=== PATIENT | female | born 1965 | race American Indian/Alaskan Native ===

== ENCOUNTER 2018-09-28 13:55 | Inpatient (IN) | payer BC ==
--- NOTE | 2018-09-28 15:14 | ED PDOC ---
Arrival/HPI - General Chief Complaint: GI Problem Time Seen by Provider: 09/28/18 14:02 Historian: Patient, Family - History of Present Illness Narrative History of Present Illness (Text): 09/28/18 15:13 52 year old female, whose past medical history includes Stage 4 neuroendocrine carcinoma (on chemotherapy pills and injection once a month), presents to the emergency department accompanied by family complaining of abdominal distention and bilateral leg swelling that began this morning. Family states they called their sister who is an Oncologist who recommended patient to come in for evaluation. Patient is currently taking Percocet for pain management and reports she took her chemotherapy pill today. Patient is also complaining of nausea, vomiting, diarrhea, and chills, but denies any fever, chills, chest pain, shortness of breath, back pain, neck pain, headache, dizziness, or any other complaints. PMD: Dr. Nascimento Oncologist: Dr. Jose Mccarty Time/Duration: Other (this morning ) Symptom Onset: Gradual Symptom Course: Unchanged Activities at Onset: Light Context: Home Past Medical History - Provider Review Nursing Documentation Reviewed: Yes - Travel History Have you recently traveled outside [place] w/in the past 3 mons?: No - Infectious Disease Hx of Infectious Diseases: None - Reproductive Menopause: Yes Currently : No - Cardiac Hx Cardiac Disorders: No - Endocrine/Metabolic Hx Diabetes Mellitus Type 2: Yes Other/Comment: endocrine ca - Hematological/Oncological Hx Blood Disorders: No - Psychiatric Hx Substance Use: No - Anesthesia Hx Anesthesia: No Hx Anesthesia Reactions: No Family/Social History - Physician Review Nursing Documentation Reviewed: Yes Family/Social History: No Known Family HX Smoking Status: Unknown If Ever Smoked Hx Alcohol Use: No Hx Substance Use: No Allergies/Home Meds Allergies/Adverse Reactions: Allergies No Known Allergies Allergy (Verified 09/28/18 14:06) Home Medications: Home Meds Medication Instructions Recorded Confirmed Everolimus [Afinitor] 0 09/28/18 Review of Systems - Physician Review All systems were reviewed & negative as marked: Yes - Review of Systems Constitutional: Other (chills). absent: Fevers Respiratory: absent: SOB Cardiovascular: absent: Chest Pain Gastrointestinal: Diarrhea, Nausea, Vomiting, Other (distented) Genitourinary Female: absent: Frequency, Hematuria Musculoskeletal: absent: Back Pain, Neck Pain Neurological: absent: Headache, Dizziness Physical Exam Vital Signs Reviewed: Yes Vital Signs Temp Pulse Resp BP Pulse Ox 09/28/18 13:56 98.1 F 99 H 16 129/80 98 Temperature: Afebrile Blood Pressure: Normal Pulse: Tachycardic Respiratory Rate: Normal Appearance: Positive for: Non-Toxic, Comfortable, Cachectic Pain Distress: None Mental Status: Positive for: Alert and Oriented X 3 - Systems Exam Conjunctiva: Present: Other (Jaundice) Respiratory/Chest: Present: Clear to Auscultation. No: Wheezes, Rales, Rhonchi Cardiovascular: Present: Regular Rate and Rhythm, Normal S1, S2. No: Murmurs, Rub, Gallop Abdomen: Present: Distention, Other (soft, fluid shift). No: Tenderness Upper Extremity: Present: Normal Inspection. No: Cyanosis, Edema Lower Extremity: Present: Edema (+2 pitting edema) Neurological: Present: GCS=15, Speech Normal Psychiatric: Present: Alert, Oriented x 3, Normal Insight, Normal Concentration Medical Decision Making ED Course and Treatment: 09/28/18 15:13 Impression: 52 year old female presents complaining of abdominal distention and bilateral leg swelling that began this morning associated with nausea, vomiting, and diarrhea. PMHx includes Stage 4 neuroendocrine carcinoma on chemotherapy. Differential Diagnosis included but are not limited to: Plan: -- VBG -- CT Abd & Pelvis IV Contrast -- Labs -- Morphine --Pepcid --IV Fluids --Zofran --Dilaudid PO --Reglan -- Blood Culture -- UA -- Reassess and disposition Progress Notes: 09/28/18 18:27 Labs reviewed with slight hyperkalemia noted. Patient feels unchanged after receiving morphine. CT findings explained to patient and family members. Dopplers negative for DVT. Spoke to patient's family who agree with plan for admission and requests pain/palliative consult. 09/28/18 18:[address] Gant(covering for Dr. Nascimento) who accepts patient onto her service. - Lab Interpretations Lab Results: 09/28/18 15:20 09/28/18 15:20 Lab Results 09/28/18 17:59: Urine Color Light yellow, Urine Appearance Clear, Urine pH 7.0, Ur Specific [place] <= 1.005, Urine Protein Negative, Urine Glucose (UA) Negative, Urine Ketones Trace H, Urine Blood Trace-intact H, Urine Nitrate Negative, Urine Bilirubin Negative, Urine Urobilinogen 0.2, Ur Leukocyte Esterase Negative, Urine RBC 0 - 2, Urine WBC None, Ur Epithelial Cells None 09/28/18 15:24: pO2 130 H, VBG pH 7.39, VBG pCO2 45.0, VBG HCO3 27.2, VBG Total CO2 28.6 H, VBG O2 Sat (Calc) 100.1 H, VBG Base Excess 1.7, VBG Potassium 5.3 H, Glucose 211 H, Lactate 1.7, FiO2 21.0, Sodium 131.0 L, Chloride 99.0, Venous Blood Potassium 5.3 H 09/28/18 15:20: Sodium 133, Potassium 4.5, Chloride 96 L, Carbon Dioxide 28, Anion Gap 13, BUN 8, Creatinine 0.7, Est GFR ( Amer) > 60, Est GFR (Non- Af Amer) > 60, Random Glucose 209 H, Calcium 9.1, Total Bilirubin 4.3 H, AST 123 H, ALT 30, Alkaline Phosphatase 1425 H, Lactate Dehydrogenase 862 H, Total Creatine Kinase 41, Troponin I < 0.01, Total Protein 7.5, Albumin 3.3, Globulin 4.2, Albumin/Globulin Ratio 0.8 L, Lipase 366 H 09/28/18 15:20: PT 14.0 H, INR 1.26, APTT 43.1 H 09/28/18 15:20: WBC 9.0, RBC 4.98, Hgb 12.0, Hct 35.5 L, MCV 71.3 L, MCH 24.1 L, MCHC 33.8, RDW 21.2 H, Plt Count 144, Neut % (Auto) 65.5, Lymph % (Auto) 26.7, Colbert % (Auto) 7.4 H, Eos % (Auto) 0.2 L, Baso % (Auto) 0.2, Lymph # (Auto) 2.4, [place] # (Auto) 0.7 H, Eos # (Auto) 0.0, Baso # (Auto) 0.02, Absolute Neuts (auto) 5.92 I have reviewed the lab results: Yes - RAD Interpretation Narrative RAD Interpretations (Text): PROCEDURE: CT Abdomen and Pelvis Dictator : Giles Falcon MD Report Date : 09/28/2018 17:27:15 IMPRESSION: Liver demonstrates a slightly nodular contour. Rule out underlying cirrhosis. There are numerous round varying sized low-attenuation lesions scattered throughout the hepatic parenchyma the 2 of the largest located in the inferior right lobe and the superior right lobe of former larger than latter. Rule out metastasis or possibly multicentric hepatocellular carcinoma Diffuse wall thickening of the small and most of the large bowel possibly due to a large amount of ascites of however the possibility of nonspecific inflammatory process not excluded. Rule out a mesenteric/peritoneal metastasis. Lytic lesion T11 segment. diffuse micronodular opacities seen in both lung bases; rule out nodular distal infiltrates versus the possibility of neoplastic lymphangitic spread. Clinical correlation recommended. Rounded/elliptical shaped soft tissue lesion in the left lung base is present measuring approximately 2.7 x 2.1 x 2.0 cm. Rule out metastatic lesion. Small bilateral effusions with mild bibasilar atelectasis. Radiology Orders: 09/28/18 14:14 ABD & PELVIS IV CONTRAST ONLY [CT] [employer]: Radiologist - Medication Orders Current Medication Orders: Discontinued Medications Famotidine (Pepcid) 20 mg IVP STAT STA Stop: 09/28/18 14:12 Ondansetron HCl (Zofran Inj) 4 mg IVP STAT STA Stop: 09/28/18 14:12 - Scribe Statement The provider has reviewed the documentation as recorded by the Tania Douglas Provider Scribe Attestation: All medical record entries made by the Scribshayy were at my direction and personally dictated by me. I have reviewed the chart and agree that the record accurately reflects my personal performance of the history, physical exam, medical decision making, and the department course for this patient. I have also personally directed, reviewed, and agree with the discharge instructions and disposition. Disposition/Present on Arrival - Present on Arrival Any Indicators Present on Arrival: No History of DVT/PE: No History of Uncontrolled Diabetes: No Urinary Catheter: No History of Decub. Ulcer: No History Surgical Site Infection Following: None - Disposition Have Diagnosis and Disposition been Completed?: Yes Diagnosis: Ascites Disposition: HOSPITALIZED Disposition Time: 18:57 Patient Plan: Admission Condition: FAIR
[2018-09-28] MEDS ORDERED: Sodium Chloride 0.9% 1,000 ML IV STA (15:22)
[2018-09-28] MEDS ORDERED: Morphine 4 mg/ml ISec IVP STA (15:22)
[2018-09-28 15:25] LABS: BASO # 0.02 K/mm3 (0.0-2.0); BASO % 0.2 % (0.0-3.0); EOS % 0.2 % (1.5-5.0); LYMPH # 2.4 (1.2-3.4); LYMPH % 26.7 % (22.0-35.0); MEAN CELL VOLUME 71.3 fl (80.0-105.0); MEAN CORPUSCULAR HEMOGLOBIN 24.1 pg (25.0-35.0); MEAN CORPUSCULAR HGB CONC 33.8 g/dl (31.0-37.0); MONO # 0.7 (0.1-0.6); MONO % 7.4 % (1.0-6.0); PLATELET COUNT 144 10^3/uL (120.0-450.0); RBC 4.98 10^6/uL (3.5-6.1); RED CELL DISTRIBUTION WIDTH 21.2 % (11.5-14.5)
[2018-09-28 15:33] LABS: INR 1.26; PARTIAL THROMBOPLASTIN TIME 43.1 Seconds (26.9-38.3)
[2018-09-28 15:33] LABS: VENOUS BLOOD GAS BASE EXCESS 1.7 mmol/L (0.0-2.0); VENOUS BLOOD GAS PO2 130 mm/Hg (30-55); VENOUS BLOOD PH 7.39 (7.32-7.43)
[2018-09-28 15:34] LABS: ALB/GLOB RATIO 0.8 (1.1-1.8); ALBUMIN 3.3 g/dL (3.0-4.8); ALT/SGPT 30 U/L (7-56); AST/SGOT 123 U/L (14-36); BLOOD UREA NITROGEN 8 mg/dL (7-21); CALCIUM 9.1 mg/dL (8.4-10.5); GFR NON-AFRICAN AMERICAN > 60; LIPASE 366 U/L (23-300)
[2018-09-28 15:45] LABS: TROPONIN I < 0.01 ng/mL
[2018-09-28] MEDS ORDERED: Iohexol 350 MG/100 ML VIAL ONE (16:00)
--- NOTE | 2018-09-28 17:31 | CT ---
Date of service: 09/28/2018 PROCEDURE: CT Abdomen and Pelvis . HISTORY: Abdominal pain COMPARISON: None. TECHNIQUE: Contiguous axial images of the abdomen and pelvis. Oral contrast was administered. No IV contrast given. Coronal and Sagittal reformats generated. Radiation dose: Total exam DLP = 237.03 mGy-cm. This CT exam was performed using one or more of the following dose reduction techniques: Automated exposure control, adjustment of the mA and/or kV according to patient size, and/or use of iterative reconstruction technique. FINDINGS: LOWER THORAX: There are diffuse micronodular opacities seen in both lung bases; rule out nodular distal infiltrates versus the possibility of neoplastic lymphangitic spread. Clinical correlation recommended. Rounded/elliptical shaped soft tissue lesion in the left lung base is present measuring approximately 2.7 x 2.1 x 2.0 cm. Rule out metastatic lesion. Small bilateral effusions with mild bibasilar atelectasis. LIVER: The liver exhibits normal size measuring approximately just over 16 cm in CC dimension. Liver demonstrates a slightly nodular contour. Rule out underlying cirrhosis. There are numerous round varying sized low-attenuation lesions scattered throughout the hepatic parenchyma the 2 of the largest located in the inferior right lobe and the superior right lobe of former larger than latter. Rule out metastasis or possibly multicentric hepatocellular carcinoma GALLBLADDER AND BILE DUCTS: Gallbladder is physiologically distended with slight thick-walled appearance. No definitive evidence of intraluminal gallbladder calculi. PANCREAS: The pancreas appears grossly unremarkable without definitive mass or collection. SPLEEN: Spleen exhibits normal size and attenuation pattern without mass collection or calcification. ADRENALS: No adrenal lesions. KIDNEYS AND URETERS: Kidneys demonstrate relatively symmetric nephrograms. No evidence of nephrolithiasis or hydronephrosis. BLADDER: The urinary bladder is physiologically distended. No evidence of intraluminal urinary bladder calculi. REPRODUCTIVE: The uterus appears mildly enlarged and heterogeneous. Findings may represent uterine fibroids however follow-up pelvic ultrasound recommended to confirm. APPENDIX: Unremarkable. BOWEL: Evaluation of the bowel is limited due to the lack of oral contrast material. The stomach is incompletely distended with thick-walled appearance. Multiple thick-walled loops of small bowel are present possibly secondary to ascites or enteritis.. There is also wall thickening of the cecum ascending transverse and a good portion of the descending colon which may also be secondary to ascites however diffuse on colitis should be excluded as well. PERITONEUM: There is a large amount of ascites with infiltration changes of the mesentery.. The possibility of peritoneal-mesenteric metastasis not excluded. Mild anasarca. LYMPH NODES: Unremarkable. No enlarged lymph nodes. VASCULATURE: Unremarkable. No aortic aneurysm. No aortic atherosclerotic calcification or mural plaque present. BONES: No acute compression fractures nor retropulsed fragments. There is a lytic lesions seen in the T11 segment. Rule out bone metastases. OTHER FINDINGS: None. IMPRESSION: Liver demonstrates a slightly nodular contour. Rule out underlying cirrhosis. There are numerous round varying sized low-attenuation lesions scattered throughout the hepatic parenchyma the 2 of the largest located in the inferior right lobe and the superior right lobe of former larger than latter. Rule out metastasis or possibly multicentric hepatocellular carcinoma Diffuse wall thickening of the small and most of the large bowel possibly due to a large amount of ascites of however the possibility of nonspecific inflammatory process not excluded. Rule out a mesenteric/peritoneal metastasis. Lytic lesion T11 segment. diffuse micronodular opacities seen in both lung bases; rule out nodular distal infiltrates versus the possibility of neoplastic lymphangitic spread. Clinical correlation recommended. Rounded/elliptical shaped soft tissue lesion in the left lung base is present measuring approximately 2.7 x 2.1 x 2.0 cm. Rule out metastatic lesion. Small bilateral effusions with mild bibasilar atelectasis.
--- NOTE | 2018-09-28 18:06 | US ---
HISTORY: Leg pain and swelling. Evaluate for DVT PHYSICIAN(S): Malachi Toro MD. TECHNIQUE: Duplex sonography and color-flow Doppler with graded compression were used to evaluate the deep venous systems of both lower extremities. FINDINGS: The visualized deep venous systems of both lower extremities are sonographically normal and compressible. Normal wave forms and augmentation are seen. There is no sonographic evidence for deep venous thrombosis in the visualized segments of both lower extremities. IMPRESSION: No sonographic evidence for deep venous thrombosis in the visualized segments of both lower extremities.
[2018-09-28 18:10] LABS: URINE BILIRUBIN NEGATIVE (NEGATIVE); URINE BLOOD TRACE-INTACT (NEGATIVE); URINE GLUCOSE (UA) NEGATIVE (NEGATIVE); URINE LEUKOCYTE ESTERASE NEGATIVE Leu/uL (NEGATIVE); URINE PROTEIN NEGATIVE mg/dL (<30 mg/dL); URINE UROBILINOGEN 0.2 E.U./dL (<1 E.U./dL)
[2018-09-28 18:11] LABS: URINE APPEARANCE CLEAR (CLEAR); URINE COLOR LIGHT YELLOW (YELLOW)
[2018-09-28 18:17] LABS: URINE RBC 0 - 2 /hpf (0-2)
[2018-09-28] MEDS: Dextrose 5%/0.45% NS 1,000 ML IV SCH (22:33)
[2018-09-28 22:35] VITALS: BMI 20.5
[2018-09-29] MEDS: Dextrose 5%/0.45% NS 1,000 ML IV SCH (00:29)
--- NOTE | 2018-09-29 01:03 | HP ---
DATE OF EXAM: 09/28/2018 HISTORY OF PRESENT ILLNESS: The patient is 52-year-old patient of Dr. Nascimento, covering for her. The patient came to emergency room because of some increasing abdominal distention, feeling discomfort, and having nausea and diarrhea. The patient has known case of metastatic neuroendocrine carcinoma and she has been on chemotherapy and injectable chemo that she took at the clinic today. The patient states she has been having very significant this morning so was brought in by family to emergency room for further evaluation. Denies any nausea or vomiting. Denies any fever or chills. Does have nausea and diarrhea with some abdominal distention and discomfort. No hemoptysis. No hematemesis. PAST MEDICAL HISTORY: Significant for: 1. Anemia. 2. Neuroendocrine tumor. ALLERGIES: SHE IS NOT ALLERGIC TO ANY MEDICATIONS. MEDICATIONS AT HOME: She is on Afinitor given by oncologist. SOCIAL HISTORY: She lives with the family. Denies smoking, drinking, alcohol use. REVIEW OF SYSTEMS: Significant for poor appetite, abdominal distention, and diarrhea. PHYSICAL EXAMINATION GENERAL: She is awake, alert, oriented, able to communicate. VITAL SIGNS: She is afebrile, pulse 91, respirations 16, blood pressure 129/80. LUNGS: Bilateral fair air flow. No rhonchi or crackle. HEART: S1 and S2 audible. ABDOMEN: Slightly distended with fluid observed. EXTREMITIES: Bilateral legs, +2 edema. LABORATORY DATA: WBC is 9.0, hemoglobin 12, hematocrit 35, platelets 144. PT 14.0, INR 1.06. Chemistry; sodium 133, potassium 4.5, chloride 96, CO2 of 29, BUN 8, creatinine 0.7, blood sugar 209, total bili 4.3, AST 123, ALT 30, alk phos is 1425. LDH is 862, lipase is 366. Urine shows trace blood. She had CT scan of the abdomen and pelvis done that shows liver having nodular appearance, cirrhosis versus mets, numerous low attenuation lymphs throughout the hepatic parenchyma, diffuse wall thickening of both small and large bowel due to large amount of ascites, particularly in T11, and diffuse micronodular opacities in both lung bases giving appearance of neoplastic lymphangitic spread, small bilateral pleural effusions. ASSESSMENT: 1. Metastatic neuroendocrine malignancy. 2. Malignant ascites. 3. Obstructive jaundice. PLAN: Start the patient on IV fluid, analgesic as needed. Dr. Malachi Toro for therapeutic tap and Gastrointestinal consult by Dr. Hampton has been requested. Follow up electrolytes in a.m. Ralph Gant MD
[2018-09-29 07:57] LABS: BASO # 0.02 K/mm3 (0.0-2.0); BASO % 0.3 % (0.0-3.0); EOS % 0.5 % (1.5-5.0); LYMPH # 1.9 (1.2-3.4); LYMPH % 24.5 % (22.0-35.0); MEAN CELL VOLUME 71.2 fl (80.0-105.0); MEAN CORPUSCULAR HEMOGLOBIN 24.7 pg (25.0-35.0); MEAN CORPUSCULAR HGB CONC 34.7 g/dl (31.0-37.0); MEAN PLATELET VOLUME 9.2 fl (7.0-11.0); MONO # 0.6 (0.1-0.6); RBC 4.45 10^6/uL (3.5-6.1); RED CELL DISTRIBUTION WIDTH 21.4 % (11.5-14.5); WHITE BLOOD COUNT 7.8 10^3/uL (4.5-11.0)
[2018-09-29 08:11] LABS: ALB/GLOB RATIO 0.8 (1.1-1.8); ALBUMIN 2.8 g/dL (3.0-4.8); ALT/SGPT 28 U/L (7-56); AST/SGOT 109 U/L (14-36); BLOOD UREA NITROGEN 7 mg/dL (7-21); CALCIUM 8.4 mg/dL (8.4-10.5); GFR NON-AFRICAN AMERICAN > 60
[2018-09-29] MEDS: HYDROmorphone 2 mg/ml ISec IVP PRN ×2 (12:00→22:51)
--- NOTE | 2018-09-29 13:48 | PN ---
DATE: 09/29/2018 SUBJECTIVE: The patient is 52-year-old, seen and examined. Looks very anxious. Complained of abdominal discomfort. Complained of nausea. Complained of poor appetite. PHYSICAL EXAMINATION: VITAL SIGNS: She is afebrile. Pulse 90, respiration 20 and blood pressure 123/78. LUNGS: Bilateral fair airflow. No rhonchi or crackle. HEART: S1 and S2, audible. ABDOMEN: Soft. She has hepatomegaly. She has refused tenderness, but no guarding. NEUROLOGICAL: She is awake, alert and able to communicate. EXTREMITIES: Bilateral leg +1 edema. LABORATORY DATA: WBC 7.8, hemoglobin 11, hematocrit 31.7 and platelet 144. Chemistry; sodium 133, potassium 4.1, chloride 100, CO2 of 27, BUN 7, creatinine 0.6, blood sugar of 234, total bilirubin 3.5, AST 108, alk phos 1180. Bilateral leg Doppler negative for DVT. ASSESSMENT: 1. Malignant ascites. 2. Non-insulin dependant diabetes. 3. History of hyperlipidemia. 4. History of hypertension, currently . 5. Abnormal discomfort, secondary to ascites. 6. Metastatic neuroendocrine malignancy. PLAN: We will start her on Duragesic patch. Give her Zofran as needed. Keep her on IV fluid. Awaiting GI. Analgesic as needed. We will followup patient in a.m. Ralph Gant MD
[2018-09-29] MEDS: Sodium Chloride 0.45% 1,000 ML IV SCH (14:06)
[2018-09-29] MEDS: Insulin Lispro (humaLOG) MIX 75/25(10 ml) SC SCH (19:23)
--- NOTE | 2018-09-29 20:12 | CON ---
DATE OF CONSULTATION: 09/29/2018 REQUESTING PHYSICIAN: Ralph Gant MD REASON FOR CONSULTATION: I have been asked to see this unfortunate 52-year-old female with known neuroendocrine carcinoma with lung primary, being followed by Dr. Jose Mccarty, who comes to the hospital with several days of increasing abdominal distention, nausea, vomiting. CT scan of the abdomen reveals multiple liver mets, a left lower lobe lung mass measuring 2 x 2 cm as well as bilateral lower lobe infiltrates, large volume ascites with infiltration of the mesentery suggestive of carcinomatosis. The patient is being treated with p.o. Afinitor for her stage IV neuroendocrine cancer as well as an injectable chemotherapeutic agent once monthly. She denies any fevers, chills, hematemesis, melena or rectal bleeding. She does admit to diffuse abdominal pain, which has been increasing over the last 3-4 days. She also admits to generalized weakness and poor appetite. PAST MEDICAL HISTORY: Notable for stage IV neuroendocrine carcinoma with lung primary. She has a history of anemia. FAMILY HISTORY: Noncontributory. SOCIAL HISTORY: She denies cigarette smoking or alcohol use. 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 REVIEW OF SYSTEMS: Notable for abdominal pain, abdominal distention, nausea, vomiting and loss of appetite. PHYSICAL EXAMINATION: GENERAL: Thin, chronically ill appearing female, lying in bed, in mild distress from abdominal discomfort. VITAL SIGNS: Temperature of 98.8, blood pressure 122/78, heart rate 90. HEENT: Reveal sclerae to be white. Conjunctivae pale. NECK: Supple. CHEST: Distant breath sounds. HEART: Regular rate and rhythm. ABDOMEN: Distended with ascites. Moderate diffuse tenderness to deep palpation. EXTREMITIES: No edema. LABORATORY DATA: White blood cell count 7.8, hemoglobin 11. Chemistries reveal total bilirubin of 3.5, AST 109, ALT 28, alkaline phosphatase of 1180. IMPRESSION: Unfortunate 52-year-old female with stage IV neuroendocrine carcinoma with liver metastasis and peritoneal carcinomatosis. Her prognosis is extremely poor. RECOMMENDATIONS: 1. Agree with interventional radiology evaluation for paracentesis for comfort measures. 2. Consider palliative care consult as her prognosis is extremely poor. Ousmane Hampton MD [facility] # [id number]
--- NOTE | 2018-09-29 20:31 | CP.PCM.CON ---
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 The patient notes to continued diminished appetite and fatigue. She has a hard time walking and spends the majority of her time resting in bed. Lower extremity venous duplex is negative for DVT. CT A/P revealed evidence of lung, liver, bone, and peritoneal metastasis. Past medical history: DM, stage IV neuroendocrine cancer of the lung Past surgical history: Denies Family history: Denies hematologic and oncologic problems Social history: Denies tobacco, alcohol, and illicit drug use. Allergies: NKA Review of systems: All remaining review of systems including HEENT, cardiovascular, respiratory, gastrointestinal, genitourinary, musculoskeletal, dermatologic, neurologic, and psychiatric are negative unless mentioned in the HPI. Past Patient History - Infectious Disease Hx of Infectious Diseases: None - Past Social History Smoking Status: Never Smoked - CARDIAC Hx Cardiac Disorders: No - ENDOCRINE/METABOLIC Hx Diabetes Mellitus Type 2: Yes Other/Comment: endocrine ca - HEMATOLOGICAL/ONCOLOGICAL Hx Blood Disorders: No - MUSCULOSKELETAL/RHEUMATOLOGICAL Hx Falls: No - PSYCHIATRIC Hx Substance Use: No - ANESTHESIA Hx Anesthesia: No Hx Anesthesia Reactions: No Meds Allergies/Adverse Reactions: Allergies Allergy/AdvReac Type Severity Reaction Status Date / Time No Known Allergies Allergy Verified 09/28/18 14:06 - Medications Medications: Current Medications Acetaminophen (Tylenol 325mg Tab) 650 mg PO Q6H PRN PRN Reason: Fever >100.4 F Hydromorphone HCl (Dilaudid) 1 mg IVP Q4H PRN PRN Reason: Pain, moderate (4-7) Last Admin: 09/29/18 12:00 Dose: 1 mg Sodium Chloride (Sodium Chloride 0.45%) 1,000 mls @ 60 mls/hr IV .[id number] [facility] Last Admin: 09/29/18 14:06 Dose: 60 mls/hr Insulin Human Regular (Humulin R High) 0 units SC ACHS [facility]; Protocol Insulin Lispro Protam/Lispro Human (Humalog Mix 75/25) 8 units SC ACBD [facility] Last Admin: 09/29/18 19:23 Dose: 8 u Ondansetron HCl (Zofran Inj) 4 mg IVP Q6H PRN PRN Reason: Nausea/Vomiting Last Admin: 09/29/18 12:00 Dose: 4 mg Pantoprazole Sodium (Protonix Inj) 40 mg IVP DAILY [facility] Last Admin: 09/29/18 10:21 Dose: 40 mg Physical Exam - Constitutional Appears: Cachectic - Head Exam Head Exam: ATRAUMATIC - Eye Exam Eye Exam: Normal appearance - ENT Exam ENT Exam: Mucous Membranes Dry - Respiratory Exam Respiratory Exam: NORMAL BREATHING PATTERN - Cardiovascular Exam Cardiovascular Exam: +S1, +S2 - GI/Abdominal Exam GI & Abdominal Exam: Normal Bowel Sounds - Extremities Exam Extremities exam: Positive for: pedal edema - Neurological Exam Neurological exam: Oriented x3 - Psychiatric Exam Psychiatric exam: Normal Affect, Normal Mood - Skin Skin Exam: Warm Results - Vital Signs Recent Vital Signs: Last Vital Signs Temp 98 F 09/29/18 06:00 Pulse 90 09/29/18 06:00 Resp 20 09/29/18 06:00 BP 122/78 09/29/18 06:00 Pulse Ox 95 09/29/18 06:00 - Labs Result Diagrams: 09/29/18 07:30 09/29/18 07:30 Labs: Laboratory Results - last 24 hr 09/29/18 09/29/18 09/29/18 00:00 06:37 07:30 WBC 7.8 RBC 4.45 Hgb 11.0 L Hct 31.7 L MCV 71.2 L MCH 24.7 L MCHC 34.7 RDW 21.4 H Plt Count 144 MPV 9.2 Neut % (Auto) 66.7 Lymph % (Auto) 24.5 [place] % (Auto) 8.0 H Eos % (Auto) 0.5 L Baso % (Auto) 0.3 Lymph # (Auto) 1.9 [place] # (Auto) 0.6 Eos # (Auto) 0.0 Baso # (Auto) 0.02 Absolute Neuts (auto) 5.18 Sodium Potassium Chloride Carbon Dioxide Anion Gap BUN Creatinine Est GFR ( Amer) Est GFR (Non-Af Amer) POC Glucose (mg/dL) 200 H 237 H Random Glucose Calcium Total Bilirubin AST ALT Alkaline Phosphatase Total Protein Albumin Globulin Albumin/Globulin Ratio 09/29/18 09/29/18 09/29/18 07:30 11:15 15:57 WBC RBC Hgb Hct MCV MCH MCHC RDW Plt Count MPV Neut % (Auto) Lymph % (Auto) [place] % (Auto) Eos % (Auto) Baso % (Auto) Lymph # (Auto) [place] # (Auto) Eos # (Auto) Baso # (Auto) Absolute Neuts (auto) Sodium 133 Potassium 4.1 Chloride 100 Carbon Dioxide 27 Anion Gap 10 BUN 7 Creatinine 0.6 L Est GFR ( Amer) > 60 Est GFR (Non-Af Amer) > 60 POC Glucose (mg/dL) 306 H 365 H Random Glucose 234 H Calcium 8.4 Total Bilirubin 3.5 H AST 109 H ALT 28 Alkaline Phosphatase 1180 H Total Protein 6.4 Albumin 2.8 L Globulin 3.7 Albumin/Globulin Ratio 0.8 L Assessment & Plan (1) Neuroendocrine carcinoma Assessment and Plan: lung, liver, bone, peritoneal metastasis likely malignant ascites - IR evaluation for palliative paracentesis imaging is consistent with progressive disease. Given her poor performance status, the patient is not a candidate for further oncologic treatment. Will place palliative care consult for discussion of hospice Status: Acute (2) Anemia Assessment and Plan: chronic disease Thank you for this interesting consult. Status: Acute
[2018-09-29] MEDS: Insulin Reg-HIGH-Coverage SC SCH (22:13)
[2018-09-30] MEDS: HYDROmorphone 2 mg/ml ISec IVP PRN ×4 (03:49→23:50)
[2018-09-30] MEDS: Sodium Chloride 0.45% 1,000 ML IV SCH (03:52)
[2018-09-30] MEDS: Insulin Lispro (humaLOG) MIX 75/25(10 ml) SC SCH ×3 (08:55→16:30)
[2018-09-30] MEDS: Insulin Reg-HIGH-Coverage SC SCH ×4 (08:55→23:44)
--- NOTE | 2018-09-30 16:21 | PN ---
DATE: 09/30/2018 SUBJECTIVE: The patient is 52-year-old, seen and examined, lying in bed, looks very sick, and poor oral intake. Complain of abdominal discomfort. PHYSICAL EXAMINATION: VITAL SIGNS: She is afebrile, pulse 90, respirations 18, and blood pressure 129/80. HEENT: She has anicteric sclerae, pale conjunctivae. LUNGS: Bilateral fair respiratory effort. HEART: S1 and S2 audible. ABDOMEN: Soft and has diffused palpable discomfort. She has hepatomegaly. EXTREMITIES: Bilateral leg +1 edema. LABORATORY DATA: WBC 7.8, hemoglobin 11, hematocrit 31.7, and platelets 144. Chemistry; blood sugar is 155. ASSESSMENT: 1. Metastatic neuroendocrine tumor of lung. 2. Malignant ascites. 3. Non-insulin dependent diabetes. PLAN: I will request for palliative care consult. Continue her analgesic. I will increase her Duragesic patch to 25 mcg daily. We will increase her coverage from 8 to 10 unit, since her blood sugar is still running on high side. I will start her on Glucerna pudding because she has no healthy diet and I will also order for Periactin. Oncology input noted and appreciated. At this point, she needs pain management. We will start her on Duragesic patch and give her Dilaudid as needed. We will discuss with the patient for hospice care at home probably. Ralph Gant MD
--- NOTE | 2018-09-30 16:50 | CP.PCM.CON ---
History of Present Illness - History of Present Illness History of Present Illness: Palliative consult requested by Dr Raheem Gant Reason: Goals of care 52 year old female with history of neuroendocrine cancer of lung who presented to ED on 09/28 with abdominal pain and distention.She states that her appetite is poor. She denied nausea, vomiting,fever, chills, headache, dizziness, chest pain. US of extremites: No evidence of DVT CT of abdomen: Numerous lesions,diffuse wall thickening of small and most of large bowel, large amount of ascites. Lytic lesion T11. Lesion left lung base 2.7X 2.1x 2.0. Small bilateral pleural effusions PMHx: metastatic neuroendocrine cancer of lung, anemia PSHx: Social History: Never smoker, no alcohol or drug use.Lives with siblings Family History: Non contributory Advance Care Planning: The patient does not have an Advanced Directive Review of Systems - Constitutional Constitutional: Anorexia, Malaise, Weakness - EENT Additional comments: negative - Cardiovascular Cardiovascular: Dyspnea on Exertion - Respiratory Respiratory: Dyspnea on Exertion - Gastrointestinal Gastrointestinal: Abdominal Pain, Bloating, Diarrhea - Musculoskeletal Musculoskeletal: Muscle Weakness Additional comments: swelling of lower extremities - Integumentary Integumentary: Change in Hair - Neurological Additional comments: negative - Psychiatric Additional comments: negative - Endocrine Additional Comments: negative Past Patient History - Infectious Disease Hx of Infectious Diseases: None - Past Social History Smoking Status: Never Smoked - CARDIAC Hx Cardiac Disorders: No - ENDOCRINE/METABOLIC Hx Diabetes Mellitus Type 2: Yes Other/Comment: endocrine ca - HEMATOLOGICAL/ONCOLOGICAL Hx Blood Disorders: No - MUSCULOSKELETAL/RHEUMATOLOGICAL Hx Falls: No - PSYCHIATRIC Hx Substance Use: No - ANESTHESIA Hx Anesthesia: No Hx Anesthesia Reactions: No Meds Allergies/Adverse Reactions: Allergies Allergy/AdvReac Type Severity Reaction Status Date / Time No Known Allergies Allergy Verified 09/28/18 14:06 - Medications Medications: Current Medications Acetaminophen (Tylenol 325mg Tab) 650 mg PO Q6H PRN PRN Reason: Fever >100.4 F Cyproheptadine HCl (Periactin) 4 mg PO TID [facility] Last Admin: 09/30/18 15:03 Dose: 4 mg Fentanyl (Duragesic) 1 patch TD Q72H [facility] Last Admin: 09/30/18 15:03 Dose: 1 patch Hydromorphone HCl (Dilaudid) 1 mg IVP Q4H PRN PRN Reason: Pain, moderate (4-7) Last Admin: 09/30/18 10:58 Dose: 1 mg Sodium Chloride (Sodium Chloride 0.45%) 1,000 mls @ 60 mls/hr IV .[id number] [facility] Last Admin: 09/30/18 03:52 Dose: 60 mls/hr Insulin Human Regular (Humulin R High) 0 units SC [facility]; Protocol Last Admin: 09/30/18 12:27 Dose: Not Given Insulin Lispro Protam/Lispro Human (Humalog Mix 75/25) 10 units SC [facility] Ondansetron HCl (Zofran Inj) 4 mg IVP Q6H PRN PRN Reason: Nausea/Vomiting Last Admin: 09/30/18 10:30 Dose: 4 mg Pantoprazole Sodium (Protonix Ec Tab) 40 mg PO ACB [facility] Physical Exam - Constitutional Appears: Cachectic, Chronically Ill - Eye Exam Eye Exam: PERRL, Scleral icterus - ENT Exam ENT Exam: Mucous Membranes Moist - Respiratory Exam Respiratory Exam: Decreased Breath Sounds, NORMAL BREATHING PATTERN - Cardiovascular Exam Cardiovascular Exam: REGULAR RHYTHM, +S1, +S2 - GI/Abdominal Exam GI & Abdominal Exam: Distended, Firm, Tenderness - Extremities Exam Additional comments: 2+ edema of lower extremities - Neurological Exam Neurological exam: Alert, Oriented x3 - Skin Skin Exam: Dry, Pallor - Additional Findings Additional findings: Palliative performance scale rating 40 % Results - Vital Signs Recent Vital Signs: Last Vital Signs Temp 98.1 F 09/30/18 06:00 Pulse 90 09/30/18 06:00 Resp 18 09/30/18 06:00 BP 129/80 09/30/18 06:00 Pulse Ox 100 09/30/18 06:00 - Labs Result Diagrams: 09/29/18 07:30 09/29/18 07:30 Labs: Laboratory Results - last 24 hr 09/29/18 09/30/18 09/30/18 21:51 06:51 11:12 POC Glucose (mg/dL) 344 H 200 H 155 H 09/30/18 16:10 POC Glucose (mg/dL) 166 H Assessment & Plan - Assessment and Plan (Free Text) Assessment: 52 year old female with history of neuroendocrine lung cancer which has metastasized to liver, spine. She is admitted with ascites, abdominal pain, anorexia, dehydration and deconditioning. The patient is alert and oriented.She complains of abdominal pain and nausea. Awaiting paracentisis later today Siblings at bedside. Patient wished to include her family in our discussion. Patient understands her diagnosis and reason for admission. She stated the her oncologist met with her and explained that her cancer was progressing and that treatment was no longer an option She stated that she wants to go home and be kept comfortable. Hospice care offered. Hospice services explained in detail. question answered. Patient states that she wants to be fully resuscitated. Burdens of CPR/intubation explained> Family antonio consider hsoice option. Parient and family having hard time accepting the gravity of this situation. Time spent in goals of care ad advance care planning, 45 minutes Plan: Goals of care and advance care planning. Ascites: Paracentisis, evaluation for Aspira catheter placement? Pain: Fentanyl 25 mcg transdermal patch, Dilaudid for breakthrough pain as needed Continue Zofran for nausea IVF's as ordered
--- NOTE | 2018-09-30 16:54 | PN ---
DATE: 09/30/2018 SUBJECTIVE: The patient is lying in bed. She is still complaining of abdominal pain, nausea, generalized weakness and poor appetite. PHYSICAL EXAMINATION VITAL SIGNS: Reveal temperature of 98.1, blood pressure 129/80, heart rate 90. HEENT: Reveal sclerae to be white. Conjunctivae pale. NECK: Supple. CHEST: Reveals lungs to be clear. HEART: Reveals regular rate and rhythm. ABDOMEN: Softly distended with moderate diffuse tenderness. Voluntary guarding. No rebound. EXTREMITIES: Show no edema. LABORATORY DATA: Reveals white blood cell count 7.8, hemoglobin 11.0. Chemistries reveal blood sugar of 155, total bilirubin 3.5, AST 109, alkaline phosphatase of 1180. IMPRESSION: A 52-year-old female with neuroendocrine cancer of the lung, stage IV with metastasis to the liver, bone and omentum. She has peritoneal carcinomatosis. Her prognosis is extremely poor. RECOMMENDATIONS: I have discussed this case with Dr. Malachi Toro. He plans on placing a peritoneal catheter for drainage as needed. Given her rapid progression of disease, Oncology feels that no further treatment will be of any benefit. Oncology has recommended hospice care, which I agree is appropriate. Ousmane Hampton MD
--- NOTE | 2018-09-30 22:28 | CP.PCM.PN ---
Subjective - Date & Time of Evaluation Date of Evaluation: 09/30/18 Time of Evaluation: 18:00 - Subjective Subjective: Feels weak. Objective - Vital Signs/Intake and Output Vital Signs (last 24 hours): Temp Pulse Resp BP Pulse Ox 99.5 F 100 H 18 118/50 L 97 09/30/18 14:00 09/30/18 14:00 09/30/18 14:00 09/30/18 14:00 09/30/18 14:00 Intake and Output: 09/30/18 10/01/18 18:59 06:59 Intake Total 120 240 Balance 120 240 - Medications Medications: Current Medications Acetaminophen (Tylenol 325mg Tab) 650 mg PO Q6H PRN PRN Reason: Fever >100.4 F Cyproheptadine HCl (Periactin) 4 mg PO TID [facility] Last Admin: 09/30/18 19:14 Dose: 4 mg Fentanyl (Duragesic) 1 patch TD Q72H [facility] Last Admin: 09/30/18 15:03 Dose: 1 patch Hydromorphone HCl (Dilaudid) 1 mg IVP Q4H PRN PRN Reason: Pain, moderate (4-7) Last Admin: 09/30/18 17:26 Dose: 1 mg Sodium Chloride (Sodium Chloride 0.45%) 1,000 mls @ 60 mls/hr IV .[id number] [facility] Last Admin: 09/30/18 03:52 Dose: 60 mls/hr Insulin Human Regular (Humulin R High) 0 units SC [facility]; Protocol Last Admin: 09/30/18 16:30 Dose: Not Given Insulin Lispro Protam/Lispro Human (Humalog Mix 75/25) 10 units SC ACBD [facility] Last Admin: 09/30/18 16:30 Dose: Not Given Ondansetron HCl (Zofran Inj) 4 mg IVP Q6H PRN PRN Reason: Nausea/Vomiting Last Admin: 09/30/18 10:30 Dose: 4 mg Pantoprazole Sodium (Protonix Ec Tab) 40 mg PO ACB [facility] - Labs Labs: 09/29/18 07:30 09/29/18 07:30 PT 14.0 SECONDS (9.4-12.5) H 09/28/18 15:20 INR 1.26 09/28/18 15:20 APTT 43.1 Seconds (26.9-38.3) H 09/28/18 15:20 - Constitutional Appears: Cachectic - Head Exam Head Exam: ATRAUMATIC - Eye Exam Eye Exam: Normal appearance - ENT Exam ENT Exam: Mucous Membranes Dry - Respiratory Exam Respiratory Exam: NORMAL BREATHING PATTERN - Cardiovascular Exam Cardiovascular Exam: +S1, +S2 Assessment and Plan (1) Neuroendocrine carcinoma Assessment & Plan: stage IV progressive disease; not a treatment candidate due to debility recommend home hospice; seen by palliative care Status: Acute (2) Anemia Assessment & Plan: chronic disease Status: Acute
[2018-10-01] MEDS ORDERED: Pantoprazole 40 mg EC Tab PO SCH (07:30)
[2018-10-01 08:03] VITALS: O2SAT 100
[2018-10-01] MEDS: Insulin Reg-HIGH-Coverage SC SCH ×3 (09:05→17:42)
[2018-10-01] MEDS: HYDROmorphone 2 mg/ml ISec IVP PRN ×2 (09:40→17:42)
[2018-10-01] MEDS: Insulin Lispro (humaLOG) MIX 75/25(10 ml) SC SCH (09:42)
--- NOTE | 2018-10-01 11:37 | PN ---
DATE: 10/01/2018 SUBJECTIVE: The patient is lying in bed. She continues to have a moderate amount of abdominal pain. She admits to nausea and poor appetite. PHYSICAL EXAMINATION VITAL SIGNS: Reveal temperature of 99.2, blood pressure 117/78, heart rate of 88. HEENT: Reveal sclerae to be white. Conjunctivae pale. Oral mucosa is dry. NECK: Supple. CHEST: Reveals distant breath sounds. HEART: Reveals a regular rate and rhythm. ABDOMEN: Distended with moderate diffuse tenderness. Voluntary guarding. No rebound. EXTREMITIES: Show no edema. LABORATORY DATA: Reveals hemoglobin of 11, white blood cell count of 7. Chemistries reveal blood sugar of 146. IMPRESSION: A 52-year-old female with stage IV neuroendocrine carcinoma of the lung with liver, bone and omental metastasis with malignant ascites. Her prognosis is extremely poor. RECOMMENDATIONS: 1. Awaiting peritoneal catheter placement for palliative relief of her ascites. 2. Arrangements are being made for home hospice. Ousmane Hampton MD
--- NOTE | 2018-10-01 12:05 | US ---
PROCEDURE: Ultrasound guided paracentesis. HISTORY: Metastatic neuroendocrine lung carcinoma . new onset ascites with abdominal pain and distension. Needs therapeutic paracentesis PHYSICIAN(S): Malachi Toro MD. TECHNIQUE: The relative risks and indications for the procedure were explained to the patient and informed written consent obtained. Sonography of the abdomen was performed in a supine position. This revealed a small to moderate amount of non-loculated ascites, greatest in the right lower quadrant. A puncture site was selected and the area was prepped and draped in the usual sterile fashion. 1% Xylocaine was used to anesthetize the skin and soft tissues. A [place] paracentesis catheter was trocared into the right lower quadrantand 1800 cc of clear straw-colored fluid aspirated. A cytology specimen was sent. IMPRESSION: Ultrasound-guided paracentesis in the right lower quadrant. 1800 cc of fluid were aspirated. A cytology specimen was sent
[2018-10-01 15:09] VITALS: BP 115/73; PULSE 102; RESP 18; TEMP 98.8
--- NOTE | 2018-10-01 16:59 | PN ---
DATE: 10/01/2018 SUBJECTIVE: The patient is 52 years old, seen and examined, seems to be comfortable. She states present management is helping her pain. She was able to eat somewhat. PHYSICAL EXAMINATION: VITAL SIGNS: She has a temperature of 99.2, pulse 88, respirations 20, and blood pressure 117/78. LUNGS: Bilateral fair airflow. No rhonchi or crackles. HEART: S1 and S2 audible. ABDOMEN: Soft, palpable discomfort in upper and periumbilical area. No guarding. EXTREMITIES: Bilateral legs, +1 edema. LABORATORY DATA: Blood sugar is 182. Blood cultures are negative. ASSESSMENT: 1. Metastatic neuroendocrine malignancy of lung. 2. Significant weight loss. 3. Poor oral intake. 4. [id number] diabetes. 5. Anemia. PLAN: We will continue the patient on IV fluids. She has been started on cyproheptadine. Continue on Protonix. We will monitor her status again. She seems to be tolerating Duragesic patch. I will increase the dose to 50 tomorrow and then we can taper down Dilaudid to as needed. Ralph Gant MD
--- NOTE | 2018-10-01 23:19 | CP.PCM.PN ---
Subjective - Date & Time of Evaluation Date of Evaluation: 10/01/18 Time of Evaluation: 13:00 - Subjective Subjective: Appears comfortable, family at bedside. Objective - Vital Signs/Intake and Output Vital Signs (last 24 hours): Temp Pulse Resp BP Pulse Ox 98.8 F 102 H 18 115/73 100 10/01/18 14:00 10/01/18 14:00 10/01/18 14:00 10/01/18 14:00 10/01/18 14:00 - Labs Labs: 09/29/18 07:30 09/29/18 07:30 PT 14.0 SECONDS (9.4-12.5) H 09/28/18 15:20 INR 1.26 09/28/18 15:20 APTT 43.1 Seconds (26.9-38.3) H 09/28/18 15:20 - Constitutional Appears: Cachectic - Head Exam Head Exam: ATRAUMATIC - Eye Exam Eye Exam: Normal appearance - ENT Exam ENT Exam: Mucous Membranes Dry - Respiratory Exam Respiratory Exam: NORMAL BREATHING PATTERN - Cardiovascular Exam Cardiovascular Exam: +S1, +S2 - GI/Abdominal Exam GI & Abdominal Exam: Normal Bowel Sounds Assessment and Plan (1) Neuroendocrine carcinoma Assessment & Plan: stage IV progressive disease palliative care/hospice evaluation Status: Acute (2) Anemia Assessment & Plan: anemia of chronic disease from malignancy Status: Acute
== END 2018-10-01 20:16 | disposition home or self-care (01) | DRG 374 ==
LOC: ED 13:55 → ERH 18:47 → 5RSO 22:30
PROVIDERS: ADMIT Internal Medicine; ATTEND Internal Medicine
PROC: 0W9G3ZX Drainage of Peritoneal Cavity, Percutaneous Approach, Diagnostic (ICD-10-PCS; principal; 2018-10-01 09:30)
DX: C78.6 Secondary malignant neoplasm of retroperitoneum and peritoneum (principal); K83.1 Obstruction of bile duct; R18.0 Malignant ascites; C7A.090 Malignant carcinoid tumor of the bronchus and lung; C78.7 Secondary malignant neoplasm of liver and intrahepatic bile duct; C79.51 Secondary malignant neoplasm of bone; D63.0 Anemia in neoplastic disease; E86.0 Dehydration; E11.9 Type 2 diabetes mellitus without complications; I10 Essential (primary) hypertension; E78.5 Hyperlipidemia, unspecified